=== PATIENT | male | born 1970 | race Caucasian/White ===

== ENCOUNTER → 2017-04-28 | Outpatient (CLI) | payer BC ==
[~2017-04-28] VITALS: Ht 193 cm; Wt 113.4 kg
[~2017-04-28] MED LIST: ALEVE220 M2 PO
== END | disposition home or self-care (01) ==
LOC: AMB 10:51
DX: K64.8 Other hemorrhoids (principal); D12.3 Benign neoplasm of transverse colon; D12.2 Benign neoplasm of ascending colon; K62.1 Rectal polyp; K62.89 Other specified diseases of anus and rectum; F31.12 Bipolar disorder, current episode manic without psychotic features, moderate; F17.200 Nicotine dependence, unspecified, uncomplicated; Z88.8 Allergy status to other drugs, medicaments and biological substances
CPT/HCPCS: 88305; J3010